=== PATIENT | male | born 1940 | race Caucasian/White ===

== ENCOUNTER 2017-07-04 09:58 | Day surgery (SDC) | payer MEDICARE, OTHER ==
[2017-07-03 14:11] VITALS: BMI 29.1
--- NOTE | 2017-07-04 15:30 | OP ---
DATE OF PROCEDURE: 07/04/2017 PROCEDURE: Esophagogastroduodenoscopy with biopsy. SURGEON: Markel Moon M.D. ANESTHESIA: Medication given per Anesthesiology Department. PREOPERATIVE DIAGNOSES: 1. Chronic gastroesophageal reflux. 2. History of Benites's esophagus. POSTOPERATIVE DIAGNOSES: 1. [place] colored epithelium consistent with Benites's from 39-41 cm from the incisors. 2. A 3 centimeter waist hiatal hernia. 3. Otherwise normal upper endoscopy. PROCEDURE IN DETAIL: Written consent was obtained prior to procedure. After adequate sedation, the forward-viewing endoscope was advanced down the stomach under direct vision to the second portion of duodenum. Both the second portion and the bulb appeared normal. The pylorus was patent. The gastri c antrum, body, fundus, and cardia all appeared normal. Retroflexion showed a 3 cm waist hiatal reza ia. Benites's lining was noted with 2 tongue protruding between 39-41 cm from the incisors. Multipl e biopsies were obtained in 2 separate containers. The mid and upper esophagus appeared normal. The patient tolerated the procedure well. ASSESSMENT: 1. Stable Benites's esophagus. 2. Hiatal hernia. 3. Otherwise normal upper endoscopy. RECOMMENDATIONS: 1. Continue with omeprazole. 2. Await biopsy report.
[2017-07-04] MEDS ORDERED: Propofol 200 MG/20 ML VIAL ONE (17:37)
== END 2017-07-04 13:20 | disposition home or self-care (01) ==
LOC: SDC 09:58
PROVIDERS: ATTEND Internal Medicine Gastroenterology
PROC: 0DB58ZX Excision of Esophagus, Via Natural or Artificial Opening Endoscopic, Diagnostic (ICD-10-PCS; principal; 2017-07-04)
DX: K22.70 Barrett's esophagus without dysplasia (principal); K21.9 Gastro-esophageal reflux disease without esophagitis; K44.9 Diaphragmatic hernia without obstruction or gangrene; I25.10 Atherosclerotic heart disease of native coronary artery without angina pectoris; M19.90 Unspecified osteoarthritis, unspecified site; I10 Essential (primary) hypertension; Z90.49 Acquired absence of other specified parts of digestive tract; Z95.0 Presence of cardiac pacemaker; Z96.652 Presence of left artificial knee joint; Z98.890 Other specified postprocedural states; Z87.891 Personal history of nicotine dependence
CPT/HCPCS: 88305; 88312; 88313; J2704

== ENCOUNTER 2018-02-17 08:57 | Outpatient (CLI) | payer MEDICARE, OTHER | END 2018-02-17 08:58 | disposition home or self-care (01) | LOC: BICULT 08:57 | PROVIDERS: ATTEND Internal Medicine Gastroenterology | DX: Z12.11 Encounter for screening for malignant neoplasm of colon (principal); K21.9 Gastro-esophageal reflux disease without esophagitis; K22.70 Barrett's esophagus without dysplasia; K44.9 Diaphragmatic hernia without obstruction or gangrene; R19.8 Other specified symptoms and signs involving the digestive system and abdomen; K76.0 Fatty (change of) liver, not elsewhere classified | CPT/HCPCS: 76700 ==

== ENCOUNTER 2018-02-19 08:18 | Day surgery (SDC) | payer MEDICARE, OTHER ==
[2018-02-18 13:28] VITALS: BMI 28.5
--- NOTE | 2018-02-19 12:36 | OP ---
DATE OF SERVICE: 02/19/2018 SURGEON: Markel Moon M.D. PROCEDURE: Colonoscopy. PREOPERATIVE DIAGNOSIS: Premedication given per Anesthesiology Department. PREPROCEDURE DIAGNOSIS: Colon screening. POSTOPERATIVE DIAGNOSES: 1. Sigmoid diverticulosis. 2. Otherwise normal colon exam. PROCEDURE IN DETAIL: A written consent was obtained prior to procedure. After adequate sedation, a rectal exam performed was normal. Endoscope was advanced to the cecum. The quality of the bowel pre p was good. The cecum, ascending colon, hepatic flexure, transverse colon, splenic flexure, descendi ng colon appeared normal. Few scattered diverticula were noted in the sigmoid colon. Rectosigmoid c olon all appeared normal. Retroflexion was normal. The patient tolerated the procedure well. ASSESSMENT: 1. Sigmoid diverticulosis coli. 2. Otherwise normal colon exam. RECOMMENDATIONS: 1. Fiber-rich diet. 2. No need for future screening exam at his age.
--- NOTE | 2018-02-19 12:44 | OP ---
DATE OF SERVICE: 02/19/2018 PROCEDURE PERFORMED: Esophagogastroduodenoscopy. SURGEON: Markel Moon M.D. ANESTHESIA: Pain medications given by Anesthesiology Department PREOPERATIVE DIAGNOSES: 1. Chronic gastroesophageal reflux. 2. Recurrent pneumonitis, presumably reflux related. 3. Very short segment Benites's esophagus. POSTOPERATIVE DIAGNOSES: 1. Medium size hiatal hernia with a gastric fold starting at 45 cm with a Z-line with squamocolumnar junction noted at approximately 40 cm with hiatal hernia waist measuring 4 cm. 2. Short segment salmon-colored lining that measured approximately 2 cm from 39 cm from the incisors . 3. Normal stomach and duodenum. PROCEDURE IN DETAIL: A written consent was obtained prior to procedure. After adequate sedation, th e forward-viewing endoscope was advanced down the stomach under direct vision. The duodenum appeared normal. The pylorus was patent. The gastric lumen appeared normal. Retroflexion showed a hiatal h ernia with the waist measuring approximately 4 cm with full insufflation. Gastric narrowing of the g astric fold narrowing of the hernia was noted at approximately 45 cm. The squamocolumnar junction wa s noted approximately 40 cm. Two tongues of salmon-colored lining from previous biopsy document Garcia ett's was noted at approximately 39 cm and appeared normal otherwise. There was no abnormality of th e esophageal mucosa. There were no erosions or esophagitis noted. The mid and upper esophagus appea red normal. The patient tolerated the procedure well. ASSESSMENT: 1. Medium size hiatal hernia, measurement as noted above. 2. Stable short segment Benites's. 3. Otherwise normal upper endoscopy. RECOMMENDATIONS: We will proceed with an esophageal manometry and pH in anticipation of antireflux s urgery for his history of recurrent reflux pneumonitis.
[2018-02-19] MEDS ORDERED: Metoprolol Tartrate 5 MG/5 ML VIAL ONE (14:23)
[2018-02-19] MEDS ORDERED: PROPOFOL 200 MG/20 ML VIAL ONE (14:23)
== END 2018-02-19 11:10 | disposition home or self-care (01) ==
LOC: SDC 08:18
PROVIDERS: ATTEND Internal Medicine Gastroenterology
PROC: 0DJD8ZZ Inspection of Lower Intestinal Tract, Via Natural or Artificial Opening Endoscopic (ICD-10-PCS; principal; 2018-02-19)
PROC: 0DJ08ZZ Inspection of Upper Intestinal Tract, Via Natural or Artificial Opening Endoscopic (ICD-10-PCS; 2018-02-19)
DX: Z12.11 Encounter for screening for malignant neoplasm of colon (principal); K57.30 Diverticulosis of large intestine without perforation or abscess without bleeding; K44.9 Diaphragmatic hernia without obstruction or gangrene; K22.70 Barrett's esophagus without dysplasia; K21.9 Gastro-esophageal reflux disease without esophagitis; Z79.01 Long term (current) use of anticoagulants; Z79.899 Other long term (current) drug therapy; Z87.891 Personal history of nicotine dependence; Z98.890 Other specified postprocedural states; Z79.82 Long term (current) use of aspirin
CPT/HCPCS: 43235; G0121; J2704

== ENCOUNTER → 2018-03-13 | Day surgery (SDC) | payer MEDICARE, OTHER ==
[~2018-03-13] MED LIST: Oxymetazoline HCl 0.05% ( 15 ML ) ONE
== END ==
LOC: ENDO/OP 07:27
PROVIDERS: ATTEND Internal Medicine Gastroenterology
DX: K21.9 Gastro-esophageal reflux disease without esophagitis (principal); K44.9 Diaphragmatic hernia without obstruction or gangrene; K22.70 Barrett's esophagus without dysplasia; Z87.891 Personal history of nicotine dependence; Z79.899 Other long term (current) drug therapy; Z79.01 Long term (current) use of anticoagulants
CPT/HCPCS: 91010

== ENCOUNTER 2018-03-20 16:52 | Outpatient (CLI) | payer MEDICARE, OTHER ==
[2018-03-20 17:29] LABS: #Eosinphils 0.1 thou/uL (0.0-0.7); #Lymphocytes 1.4 thou/uL (1.20-3.40); #Monocytes 0.4 thou/uL (0.11-0.59); #Neutrophils 3.5 thou/uL (1.40-6.50); %Basophils 0.7 % (0.0-1.0); %Eosinophils 1.8 % (0.0-10.0); %Monocytes 6.6 % (0.0-10.0); Hemoglobin 13.9 g/dL (14.0-18.0); Mean Corpuscular HGB CONC 35.4 g/dL (32.0-36.0); Mean Corpuscular Hemoglobin 34.8 pg (27.0-31.0); Mean Corpuscular Volume 98.2 fL (78.0-98.0); Mean Platelet Volume 7.2 fL (7.4-10.4); Platelet Count 142 thou/uL (130-400); RBC Distribution Width 11.6 % (11.5-14.5); White Blood Cell (WBC) Count 5.4 thou/uL (4.8-10.8)
[2018-03-20 17:49] LABS: Albumin 4.4 g/dL (3.4-4.8)
[2018-03-20 17:50] LABS: Calcium 9.4 mg/dL (7.8-10.44); Chloride 107 mmol/L (98-107); Potassium 5.2 mmol/L (3.5-5.1); Sodium 138 mmol/L (136-145)
[2018-03-20 17:51] LABS: Glucose 141 mg/dL (83-110)
[2018-03-20 17:52] LABS: Globulin 2.7 g/dL (2.4-3.5); Protein, Total 7.1 g/dL (5.8-8.1)
[2018-03-20 17:53] LABS: Bilirubin, Total 0.9 mg/dL (0.2-1.2); Carbon Dioxide 24 mmol/L (23-31)
[2018-03-20 17:54] LABS: Alkaline Phosphatase 72 U/L (40-150)
[2018-03-20 17:55] LABS: BUN (Urea Nitrogen) 25 mg/dL (8.4-25.7); Calc. Creatinine Clearance 0 mL/min (70-130); Estimated GFR-MDRD 44
[2018-03-20 17:56] LABS: AST (SGOT) 24 U/L (5-34)
[2018-03-20 17:57] LABS: ALT (SGPT) 25 U/L (8-55)
[2018-03-20 18:38] LABS: Anion Gap 12 mmol/L (10-20)
--- NOTE | 2018-03-21 15:16 | EKG ---
Test Reason : Blood Pressure : / mmHG Vent. Rate : 070 BPM Atrial Rate : 535 BPM P-R Int : 000 ms QRS Dur : 156 ms QT Int : 428 ms P-R-T Axes : 000 -68 088 degrees QTc Int : 462 ms Poor data quality, interpretation may be adversely affected Atrial fibrillation Left axis deviation Non-specific intra-ventricular conduction block Possible Lateral infarct , age undetermined Abnormal ECG No previous ECGs available Confirmed by SESAR OTOOLE, LYNSEY ([id number]) on 03/21/2018 3:16:35 PM Referred By: JERRY Confirmed By:LYNSEY KABA MD
== END 2018-03-20 16:53 | disposition home or self-care (01) ==
LOC: LABBT 16:52
PROVIDERS: ATTEND Surgery
DX: Z01.818 Encounter for other preprocedural examination (principal); K22.70 Barrett's esophagus without dysplasia; K44.9 Diaphragmatic hernia without obstruction or gangrene
CPT/HCPCS: 80053; 85025; 93005; 93010

== ENCOUNTER 2018-03-26 07:48 | Inpatient (IN) | payer MEDICARE, OTHER ==
[2018-03-20 17:20] VITALS: BMI 27.5
[2018-03-26] MEDS ORDERED: CEFAZOLIN/Water 2 GM/20 ML SYRINGE ONE (08:04)
[2018-03-26] MEDS ORDERED: Bupivacaine/Epinephrine 0.25% 30 ML VIAL ONE (08:16)
[2018-03-26] MEDS ORDERED: Fentanyl 100 MCG/2 ML VIAL ONE ×3 (08:53→11:20)
[2018-03-26] MEDS ORDERED: Dextrose 5% in Water 1,000 ML IV PRN (10:45)
[2018-03-26] MEDS ORDERED: Hydrocodone-Acetamin 15 ML UDCUP PO PRN (10:45)
[2018-03-26] MEDS ORDERED: diphenhydrAMINE 50 MG/ML VIAL IVP PRN ×2 (10:45→11:44)
[2018-03-26] MEDS ORDERED: hydrALAZINE 20 MG/ML VIAL SLOW IVP PRN (10:45)
[2018-03-26] MEDS ORDERED: Dextrose 50% Abboject 50 ML SYRINGE SLOW IVP PRN (10:45)
[2018-03-26] MEDS ORDERED: Ondansetron HCl/PF 4 MG/2 ML Vial IVP PRN ×3 (10:45→11:44)
[2018-03-26] MEDS ORDERED: Promethazine HCl 25 MG/ML VIAL IM PRN ×3 (10:45→11:44)
[2018-03-26] MEDS ORDERED: Promethazine HCl 25 MG/ML VIAL SLOW IVP PRN (10:56)
[2018-03-26] MEDS ORDERED: Zolpidem Tartrate 5 MG TAB PO PRN (11:44)
[2018-03-26] MEDS ORDERED: diphenhydrAMINE 50 MG/ML VIAL IM PRN (11:44)
[2018-03-26] MEDS ORDERED: diphenhydrAMINE 25 MG CAP PO PRN (11:44)
[2018-03-26] MEDS ORDERED: fentaNYL Citrate/PF 2,000 MCG in Sodium Chloride 0.9% 60 ML IV PRN (11:44)
[2018-03-26] MEDS ORDERED: Naloxone HCl 0.4 mg/ml Vial IV PRN (11:44)
[2018-03-26] MEDS ORDERED: Communication Order-Pharmacy FS SCH (11:45)
[2018-03-26] MEDS ORDERED: hydrALAZINE 20 MG/ML VIAL ONE (12:05)
--- NOTE | 2018-03-26 12:27 | OP ---
DATE OF PROCEDURE: 03/26/2018 PREOPERATIVE DIAGNOSES: Benites's esophagus, hiatal hernia, severe reflux. SURGEON: Daren Fleming M.D. PROCEDURE PERFORMED: Laparoscopic Michael fundoplication with esophagogastroduodenoscopy. INDICATIONS: This is an 78-year-old male who has been dealing with reflux for many years. He has de veloped Benites's esophagus without dysplasia. His reflux is not controlled by medication. He was f ound to have a hiatal hernia as well. FINDINGS: Moderate sized hiatal hernia quite a bit inflammation around the distal esophagus. PROCEDURE IN DETAIL: After informed consent was obtained, the patient was taken to the operating dennis m and given general endotracheal anesthesia. He was placed in the supine position. The abdomen was prepped and draped in usual fashion. Local anesthesia infiltrated subcutaneously and deep. A 5 mm i ncision was performed about 8 inches below the xiphoid slightly to the left. Veress needle inserted. Drop test performed. Pneumoperitoneum was created to a volume of 2 liters of carbon dioxide. Util izing a bladeless 5 mm trocar and 0 degree laparoscope, direct visual into the abdominal cavity was p erformed. Pneumoperitoneum was then created to a pressure of 15 mmHg. The patient placed in steep r everse Trendelenburg position. Nathansen liver retractor inserted. Left lobe of liver retracted sup eriorly. A 5 mm port was placed just to the left of the falciform, an 8 mm port placed left subcosta l and another 5 mm port placed further lateral left side. The stomach/hiatal hernia was retracted in feriorly and the gastrophrenic ligament was divided utilizing the LigaSure. The peritoneum was then opened along the anterior surface of the hiatus and down on the left crura. Then the right crura was also defined. A posterior esophageal window was created just between the posterior vagus nerve and the esophagus. This was done using blunt dissection. A Yanelis drain was then inserted through this space which aided with retraction. The short gastrics were taken down utilizing the LigaSure, hiata l hernia was completely reduced. A 40 Urdu bougie inserted under direct vision into the stomach. The posterior crural plication was performed utilizing 0 Ethibond with the Sew-Right and tie knot dev ice. Then the fundus was grasped and brought to the right side of the esophagus through that window between posterior vagal nerve and the esophagus. A Michael fundoplication was then performed utilizin g 2-0 silk sutures tied intracorporeally between fundus esophagus and the right side fundus. Intraop erative endoscopy was then performed. The video endoscope inserted under direct vision and advanced into the stomach. There was no air leak. The scope was retroflexed. The wrap looked good. There w as no paraesophageal component. The stomach decompressed. Scope removed. The stomach was further p exy'd to the lateral left-sided abdominal wall with 2-0 silk sutures to attempt to maintain and prev ent recurrence. Then the wrap was further secured to the crura and hiatus circumferentially utilizin g the Tisseel sealant. Hemostasis was assured. Trocars and retractors removed. Skin closed with in terrupted 4-0 Rapide. Steri-Strips applied. Sterile bandage applied. The patient tolerated the pro cedure well and was transferred to recovery in good condition. Sponge and needle count verified lucian ect x2.
[2018-03-26] MEDS: D5 1/2 NS w/20 mEq KCL 1,000 ML IV SCH (16:56)
[2018-03-26] MEDS: CEFAZOLIN/Water 2 GM/20 ML SYRINGE SLOW IVP SCH (17:23)
[2018-03-27] MEDS: D5 1/2 NS w/20 mEq KCL 1,000 ML IV SCH ×3 (00:36→08:11)
[2018-03-27] MEDS: CEFAZOLIN/Water 2 GM/20 ML SYRINGE SLOW IVP SCH (00:38)
[2018-03-27 06:25] LABS: Anion Gap 12 mmol/L (10-20); BUN (Urea Nitrogen) 16 mg/dL (8.4-25.7); Calc. Creatinine Clearance 73 mL/min (70-130); Calcium 8.5 mg/dL (7.8-10.44); Carbon Dioxide 23 mmol/L (23-31); Chloride 105 mmol/L (98-107); Estimated GFR-MDRD 68; Glucose 203 mg/dL (83-110); Potassium 4.2 mmol/L (3.5-5.1); Sodium 136 mmol/L (136-145)
[2018-03-27 07:15] LABS: #Lymphocytes 1.1 thou/uL (1.20-3.40); #Monocytes 0.5 thou/uL (0.11-0.59); %Basophils 0.1 % (0.0-1.0); %Eosinophils 0.4 % (0.0-10.0); %Lymphocytes 11.6 % (21.0-51.0); %Monocytes 4.9 % (0.0-10.0); %Neutrophils 83.1 % (42.0-75.0); Hemoglobin 13.3 g/dL (14.0-18.0); Mean Corpuscular HGB CONC 36.5 g/dL (32.0-36.0); Mean Corpuscular Hemoglobin 35.2 pg (27.0-31.0); Mean Corpuscular Volume 96.3 fL (78.0-98.0); Mean Platelet Volume 7.4 fL (7.4-10.4); Platelet Count 133 thou/uL (130-400); RBC Distribution Width 11.6 % (11.5-14.5); Red Blood Cell (RBC) Count 3.78 mill/uL (4.70-6.10); White Blood Cell (WBC) Count 9.6 thou/uL (4.8-10.8)
[2018-03-27] MEDS ORDERED: Pantoprazole 40 MG VIAL IVP SCH (09:00)
[2018-03-27] MEDS ORDERED: Enoxaparin Sodium 40 MG/0.4 ML SYRINGE SC SCH (09:00)
--- NOTE | 2018-03-27 09:35 | RAD ---
UPPER GI SERIES SINGLE COLUMN: DATE: 03/27/18. HISTORY: An 78-year-old male status post hiatal hernia repair. TECHNIQUE: The patient swallowed 15 mL of Gastrografin while upright. Brief, intermittent fluoroscopy performed . FINDINGS: The contrast material traverses the narrowed proximal gastric channel. The narrowing is presumably d ue to fundoplication, postoperative edema, or a combination of both. Contrast enters the body of the stomach and distal stomach. There is decreased peristalsis. No extravasation is identified. There is some holdup of contrast in the distal esophagus proximal to the narrowed gastric channel. No res idual hiatal hernia. IMPRESSION: 1. Postoperative edema and presumed fundoplication. 2. No evidence of leakage or any other major complication. POS: [facility]
[2018-03-27] MEDS ORDERED: DC PCA Order Set 1 EACH FS ONE (09:45)
--- NOTE | 2018-03-27 10:30 | PRG ---
DATE OF SERVICE: 03/27/2018 SUBJECTIVE: Patient is doing well. Pain is controlled. He did have some hematemesis that has resol jude. No nausea. PHYSICAL EXAMINATION: VITAL SIGNS: His temperature is 98.9, pulse 70, blood pressure 172/77. GENERAL: He looks fine. Incisions look good. LABORATORY DATA: White count 9.6, H and H 13 and 36, platelet count 133. Electrolytes just show an elevated glucose at 203. X-ray looked fine. PLAN: Start liquid diet and discontinue BRIDGE OPERATOR SLIP and discharge when tolerate and when meets criteria.
[2018-03-27] MEDS ORDERED: Hydrocodone-Acetamin 15 ML UDCUP PO PRN (10:40)
[2018-03-27 11:22] VITALS: BP 154/72; TEMP 98.5
--- NOTE | 2018-03-27 22:50 | DIS ---
DISCHARGE DIAGNOSES: Benites's esophagus, severe gastroesophageal reflux, hiatal hernia. PROCEDURES DURING ADMISSION: Laparoscopic Michael fundoplication with intraoperative esophagogastrosc opy, postoperative Gastrografin swallow. HOSPITAL COURSE: Patient was admitted, taken to the operating room where he underwent a Michael fundo plication. Postoperatively, he has done well. He is tolerating liquids well. Pain controlled on p. o. meds. He is discharged home in good condition on his usual medications with the addition of hydro codone, elixir, and Zofran oral disintegrating tablet. He will follow up with me in 2 weeks.
== END 2018-03-27 14:47 | disposition home or self-care (01) | DRG 327 ==
LOC: SDC 07:48 → SURG B 10:45 → OBSVTOIN 10:45
PROVIDERS: ADMIT Surgery; ATTEND Surgery
PROC: 0DV48ZZ Restriction of Esophagogastric Junction, Via Natural or Artificial Opening Endoscopic (ICD-10-PCS; principal; 2018-03-26)
DX: K21.9 Gastro-esophageal reflux disease without esophagitis (principal); K92.0 Hematemesis; K22.70 Barrett's esophagus without dysplasia; K44.9 Diaphragmatic hernia without obstruction or gangrene
CPT/HCPCS: 36415; 74241; 80048; 85025; 94760; C9113; J0360; J1650; J3010; J7050

== ENCOUNTER 2018-05-15 10:08 | Day surgery (SDC) | payer MEDICARE, OTHER ==
[2018-05-14 17:09] VITALS: BMI 25.6
[2018-05-15] MEDS ORDERED: PROPOFOL 200 MG/20 ML VIAL ONE (11:59)
--- NOTE | 2018-05-15 14:14 | OP ---
DATE OF CONSULTATION: 05/15/2018. PROCEDURE: Esophagogastroduodenoscopy with biopsy. SURGEON: Markel Moon M.D. MEDICATION: Given per Anesthesiology Department. PREOPERATIVE DIAGNOSES: 1. Epigastric pain. 2. Status post recent fundoplication with negative postop CT and ultrasound. POSTOPERATIVE DIAGNOSES: 1. A 1 cm duodenal bulb ulcer. 2. Erosive gastritis. 3. Intact fundoplication. 4. Lower esophageal mucosal change consistent with short segment Benites's esophagus. PROCEDURE IN DETAIL: A written consent was obtained prior to procedure. After adequate sedation, th e forward-viewing endoscope was advanced down the stomach under direct vision to second portion of du odenum. The second and first portion appeared normal. In the bulb, a 1 cm ulcer was noted with blas n crater. There was no stigmata of bleeding. Pylorus was patent. The gastric antrum appeared keyanna l. In the body, fundus, and proximal and distal cardia, scattered erosions along with mucosal erythe ma was noted. Biopsies obtained for H. pylori. Retroflexion showed an intact fundoplication. There is columnar changes in the lower esophagus consistent with his previous history of short segment Bar rett's. The lower, mid, and upper esophagus appeared normal otherwise. ASSESSMENT: 1. Duodenal ulcer. 2. Erosive gastritis. 3. Status post fundoplication with wrap intact. 4. Short segment Benites's esophagus. PLAN: 1. Await biopsy results for H. pylori. 2. Pantoprazole 40 mg p.o. b.i.d. 3. Follow up in the office in 3-4 weeks.
== END 2018-05-15 13:26 | disposition home or self-care (01) ==
LOC: SDC 10:08
PROVIDERS: ATTEND Internal Medicine Gastroenterology
PROC: 0DB68ZX Excision of Stomach, Via Natural or Artificial Opening Endoscopic, Diagnostic (ICD-10-PCS; principal; 2018-05-15)
DX: K26.9 Duodenal ulcer, unspecified as acute or chronic, without hemorrhage or perforation (principal); K29.70 Gastritis, unspecified, without bleeding; K22.70 Barrett's esophagus without dysplasia; K21.9 Gastro-esophageal reflux disease without esophagitis; Z87.891 Personal history of nicotine dependence; Z79.82 Long term (current) use of aspirin; Z79.01 Long term (current) use of anticoagulants; Z79.899 Other long term (current) drug therapy; Z98.890 Other specified postprocedural states
CPT/HCPCS: 88305; 88312; J2704

== ENCOUNTER 2018-07-06 15:35 | Inpatient (IN) | payer MEDICARE, OTHER ==
[~2018-07-06 15:35] MED LIST changes: +Iopamidol 370 76% 100 ML VIAL ONE; -Oxymetazoline HCl 0.05% ( 15 ML ) ONE
[2018-07-06] MEDS ORDERED: Ondansetron PF 4 MG/2 ML Vial ONE (16:18)
[2018-07-06] MEDS ORDERED: Morphine 4 MG/ML VIAL ONE (16:20)
[2018-07-06 16:30] LABS: #Eosinphils 0.1 thou/uL (0.0-0.7); #Lymphocytes 0.7 thou/uL (1.20-3.40); #Monocytes 0.3 thou/uL (0.11-0.59); #Neutrophils 5.3 thou/uL (1.40-6.50); %Basophils 0.7 % (0.0-1.0); %Eosinophils 1.6 % (0.0-10.0); %Lymphocytes 11.1 % (21.0-51.0); %Monocytes 5.2 % (0.0-10.0); %Neutrophils 81.4 % (42.0-75.0); Hemoglobin 13.7 g/dL (14.0-18.0); Mean Corpuscular HGB CONC 35.2 g/dL (32.0-36.0); Mean Corpuscular Hemoglobin 33.4 pg (27.0-31.0); Mean Corpuscular Volume 94.8 fL (78.0-98.0); Mean Platelet Volume 7.1 fL (7.4-10.4); Platelet Count 167 thou/uL (130-400); RBC Distribution Width 12.2 % (11.5-14.5); White Blood Cell (WBC) Count 6.5 thou/uL (4.8-10.8)
[2018-07-06 16:52] LABS: ALT (SGPT) 12 U/L (8-55); AST (SGOT) 13 U/L (5-34); Albumin 3.4 g/dL (3.4-4.8); Alkaline Phosphatase 91 U/L (40-150); Anion Gap 16 mmol/L (10-20); BUN (Urea Nitrogen) 29 mg/dL (8.4-25.7); Bilirubin, Total 1.5 mg/dL (0.2-1.2); Calc. Creatinine Clearance 0 mL/min (70-130); Calcium 9.2 mg/dL (7.8-10.44); Carbon Dioxide 20 mmol/L (23-31); Chloride 95 mmol/L (98-107); Estimated GFR-MDRD 46; Globulin 3.5 g/dL (2.4-3.5); Glucose 459 mg/dL (83-110); Lipase 41 U/L (8-78); Potassium 4.9 mmol/L (3.5-5.1); Protein, Total 6.9 g/dL (5.8-8.1); Sodium 126 mmol/L (136-145)
--- NOTE | 2018-07-06 18:25 | CT ---
CT ANGIOGRAM THORAX WITH IV CONTRAST AND 3D RECONSTRUCTIONS: 07/06/2018 HISTORY: Shortness of breath. Abdominal pain. History of recent surgery. Forty pound weight loss. COMPARISON: None available. FINDINGS: No filling defects are seen in the pulmonary arteries to suggest a pulmonary embolus. Vascular calci fications are seen in the thoracic aorta. The thoracic aorta is otherwise normal in caliber, without evidence of an aortic dissection. A triple lead left subclavian AICD device is noted in place. The heart is borderline enlarged. Nonspecific mildly increased number of lymph nodes are seen within the mediastinum. No enlarged lymp h nodes are seen by CT size criteria. A 1.9 cm left upper lobe pulmonary nodule is present. No additional discrete pulmonary nodule mass i s seen. There are emphysematous changes within the lungs, prominently on the right. There are scatt ered chronic interstitial lung changes also within the lungs bilaterally, greater at each lung base. No pleural effusion is present. Degenerative changes are seen in the spine. IMPRESSION: 1. Left upper lobe pulmonary nodule. Further evaluation with PET CT scan is recommended. 2. Chronic lung changes. 3. No CT evidence of a pulmonary embolus. 4. Borderline cardiomegaly. CODE LN POS: [facility]
--- NOTE | 2018-07-06 18:49 | CT ---
CT ABDOMEN AND PELVIS WITH IV CONTRAST: 07/06/2018 HISTORY: Shortness of breath and abdominal pain. Forty pound weight loss. COMPARISON: None available. FINDINGS: AICD leads are seen in the heart. The heart is borderline enlarged. Vascular calcifications are see n in the ascending thoracic aorta, as well as involving the abdominal aorta and, to a lesser extent, the iliac arteries. Chronic bibasilar lung changes are noted. There is slight heterogeneity of the spleen, which is overall nonspecific. No discrete mass is appre ciated. The spleen is enlarged, measuring 14.6 cm in craniocaudal dimensions. Subcentimeter, vpx-hrshi-mq-characterize, hypodense lesions are seen in each kidney. There are a few approximately 2 mm nonobstructing calculi seen in each kidney. No hydronephrosis is present. The liver, pancreas, bilateral adrenal glands, and urinary bladder demonstrate a normal CT appearance . Colonic diverticulosis is present. The appendix is not visualized, but no secondary signs to suggest appendicitis are noted. Loops of small bowel are normal in caliber. A small fat-containing left inguinal hernia is present. No free fluid, fluid collection, or lymphadenopathy is seen in the abdomen or pelvis. Degenerative changes are seen in the spine. IMPRESSION: 1. Splenomegaly with mild nonspecific heterogeneity of the spleen. 2. Subcentimeter, bgy-qkipn-zd-characterize, hypodense lesions in each kidney with tiny, nonobstruct ing renal calculi seen. 3. Colonic diverticulosis. 4. Chronic bibasilar lung changes. 5. Borderline cardiomegaly. POS: [facility]
[2018-07-06 19:37] LABS: Troponin I 0.015 ng/mL (< 0.028)
[2018-07-06] MEDS ORDERED: Acetaminophen 325 MG TAB PO PRN (20:16)
[2018-07-06] MEDS ORDERED: Ondansetron ODT 4 MG TAB SL PRN (20:16)
[2018-07-06] MEDS ORDERED: HYDROcodone/Acetaminophen 5/325 mg Tablet PO PRN ×2 (20:16)
[2018-07-06] MEDS ORDERED: Ondansetron PF 4 MG/2 ML Vial IVP PRN (20:16)
[2018-07-06] MEDS ORDERED: Dextrose 50% Abboject 50 ML SYRINGE SLOW IVP PRN (21:37)
[2018-07-06] MEDS ORDERED: Dextrose 5% in Water 1,000 ML IV PRN (21:37)
[2018-07-06] MEDS ORDERED: Insulin Regular 300 UNITS/3 ML VIAL SC PRN ×2 (21:37)
[2018-07-06 21:49] LABS: Hemoglobin A1c 10.1 % (4.0-6.0); Lactic Acid 1.9 mmol/L (0.5-2.2)
[2018-07-06] MEDS ORDERED: Carvedilol 6.25 MG TAB PO SCH (22:00)
[2018-07-06 22:21] LABS: Anion Gap 12 mmol/L (10-20); BUN (Urea Nitrogen) 28 mg/dL (8.4-25.7); Calc. Creatinine Clearance 50 mL/min (70-130); Calcium 8.7 mg/dL (7.8-10.44); Carbon Dioxide 23 mmol/L (23-31); Chloride 98 mmol/L (98-107); Estimated GFR-MDRD 49; Glucose 537 mg/dL (83-110); Phosphorus 3.5 mg/dL (2.3-4.7); Potassium 4.5 mmol/L (3.5-5.1); Sodium 128 mmol/L (136-145); Uric Acid 3.7 mg/dL (3.5-7.2)
[2018-07-06 22:27] LABS: Troponin I 0.025 ng/mL (< 0.028)
[2018-07-06] MEDS ORDERED: Insulin Glargine 20 UNITS in Pre-Filled Syringe 1 EACH SC SCH (22:45)
[2018-07-06 23:02] LABS: Folate (Folic Acid) 15.1 ng/mL (7.0-31.4)
[2018-07-06] MEDS: Sodium Chloride 0.9% 1,000 ML IV SCH (23:24)
[2018-07-07] MEDS ORDERED: Zolpidem Tartrate 5 MG TAB PO PRN (01:38)
[2018-07-07] MEDS ORDERED: Nitroglycerin 0.4 MG TAB (25 Tab Bottle) PO PRN (02:32)
[2018-07-07] MEDS ORDERED: Senokot S 8.6-50 MG TAB PO PRN (02:33)
[2018-07-07] MEDS ORDERED: Acetaminophen 325 MG TAB PO PRN (02:33)
[2018-07-07] MEDS ORDERED: Ondansetron ODT 4 MG TAB PO PRN (02:33)
[2018-07-07] MEDS ORDERED: Calcium Carbonate 500 MG ChewTAB PO PRN (02:33)
[2018-07-07] MEDS ORDERED: Ondansetron PF 4 MG/2 ML Vial IVP PRN (02:33)
--- NOTE | 2018-07-07 03:35 | HP ---
The patient was seen and examined on 07/06/2018. PRIMARY CARE PHYSICIAN: Dr. Jhonathan Singh. PRIMARY WHOLESALE MANAGER: Dr. Moon. PRIMARY GENERAL SURGERY: Dr. Fleming. CHIEF COMPLAINT: Shortness of breath as well as abdominal discomfort. HISTORY OF PRESENT ILLNESS: The patient is an 78-year-old male with laparoscopic Michael fundoplication in February of this year, presented to the emergency room with above symptoms. The patient has intermittent epigastric pain that has become more or less constant recently. He has been short of breath on minimal exertion. He does have a history of COPD as well. He also noticed 40-pound weight loss over the past 4 to 6 months. He has been feeling generally weak and fatigued. No cough, wheezing, or leg swelling reported. He denies any recent travel. He underwent EGD in April that showed duodenal ulcer with erosive gastritis with a short- segment Benites's esophagus. Biopsy was negative for H. pylori. He is currently on Protonix 40 mg twice a day. He also noticed increased polyuria, polydipsia, and polyphagia. In the emergency room, his initial vital signs showed temperature of 98.6, respirations of 28, pulse rate of 74 with a blood pressure of 138/71 with O2 saturation 100% on room air. He underwent a CT angiogram of the chest that was negative for pulmonary embolism. It showed left upper lobe pulmonary nodule approximately 1.[address] also showed emphysematous changes within the lungs , more prominent on the right. CT of the abdomen and pelvis showed colonic diverticulosis with splenomegaly. PAST MEDICAL HISTORY: 1. Congestive heart failure. He follows with a oxygen equipment preparer in [place]. He currently has a defibrillator. 2. Hypertension. 3. COPD. 4. Benign prostatic hypertrophy. 5. Hyperlipidemia. 6. Atrial tachycardia, status post ablation earlier this year. 7. Anxiety and depression. PAST SURGICAL HISTORY: 1. AICD placement. 2. Bilateral rotator cuff surgery. 3. Appendectomy. 4. Left knee replacement. 5. AICD placement. 6. Cardiac catheterization. ALLERGIES: NO KNOWN DRUG ALLERGIES. CURRENT HOME MEDICATIONS: 1. Aspirin 81 mg daily. 2. Carvedilol 6.25 mg b.i.d. 3. Digoxin 125 mcg daily. 4. Finasteride 2.5 mg daily. 5. Gemfibrozil 600 mg daily. 6. Claritin 10 mg daily. 7. Slow-Mag 64 mg daily. 8. Multivitamin one tablet daily. 9. Protonix 40 mg b.i.d. 10. Aldactone 12.5 mg on Saturday, Saturday, and Saturday. 11. Trintellix 10 mg b.i.d. 12. Ambien 5 mg at bedtime. SOCIAL HISTORY: The patient currently lives at home with his family. He denies current use of tobacco, alcohol, or drug use. He is a former smoker. He makes his own decision with help of his . FAMILY HISTORY: Negative for premature coronary artery disease. REVIEW OF SYSTEMS: All other review of systems was reviewed and were found negative. PHYSICAL EXAMINATION: VITAL SIGNS: As discussed above. GENERAL: An 78-year-old male, in no apparent distress while resting. He is saturating 92% on room air while resting. HEENT: Head, atraumatic and normocephalic. Sclerae anicteric. Moist mucous membranes. No oral lesions. NECK: Supple. No JVD. No carotid bruit. LUNGS: Showed scattered rales at bases. HEART: S1, S2 present. Regular rate and rhythm, 2/6 systolic murmur over the mitral area. ABDOMEN: Soft, mild epigastric tenderness. No rebound or guarding. No costovertebral angle tenderness. EXTREMITIES: No edema or calf tenderness. NEUROLOGIC: Grossly nonfocal. Moves all 4 extremities. PSYCHIATRIC: Alert, awake, and oriented x3. SKIN: Warm and dry. LYMPH NODES: No palpable lymph nodes in the neck. PERIPHERAL VASCULAR: Radial pulses palpable bilaterally. MUSCULOSKELETAL: No joint swelling or tenderness. LABORATORY FINDINGS: CBC showed WBC 6.5 with hemoglobin 13.7, hematocrit 38.8, and platelet of 167. Chemistry showed sodium 126, potassium 4.9, chloride 95, bicarb 20, BUN 29, creatinine 1.47, and blood glucose of 459. A1c 10.1. Serum osmolarity 287. Lactic acid 1.9. Ketones 0.2. CT angiogram of the chest by my review as discussed above. CT scan of the abdomen and pelvis with IV contrast as discussed above. EKG by my review showed paced rhythm. IMPRESSION: 1. Shortness of breath in an 78-year-old male with history of chronic obstructive pulmonary disease and congestive heart failure. He is saturating 92% on room air while resting. His symptoms are probably c/w COPD exacerbation. He will probably need home oxygen. 2. Acute on chronic epigastric discomfort with recent Michael fundoplication. He also had esophagogastroduodenoscopy in April as discussed above. 3. New diagnosis of diabetes mellitus type 2. 4. Chronic obstructive pulmonary disease. 5. Congestive heart failure, ejection fraction unknown. He denies recent echocardiogram. He follows with a oxygen equipment preparer in [place]. 6. Left upper pulmonary nodule measuring 1.9 cm. Primary care physician advised to follow. 7. Diverticulosis. 8. Peptic ulcer disease. 9. Recent Michael fundoplication. 10. Hypertension. 11. Hyperlipidemia. 12. Chronic insomnia. 13. Benign prostatic hypertrophy. 14. Anxiety and depression. 15. Coronary artery disease without any stent placement per patient report. 16. History of atrial arrhythmia, requiring ablation earlier this year. PLAN: The patient will be monitored on the telemetry unit. Echocardiogram will be obtained. We will consult dietitian for new-onset diabetes. We will start him on low-dose glipizide along with sliding scale. He will also probably require low- dose Lantus on a daily basis. We will resume all other home medications. We will recheck labs on a daily basis, consult dietitian. We will keep him on clear- liquid diet and consult General Surgery due to persistent abdominal discomfort. We will assess for home O2 in the a.m. The patient was extensively counseled on diabetes and its long-term side effects. Will avoid steroids due to hyperglycemia. Plan of care was discussed with the patient in detail. He stated understanding. Job ID: [id number] MTDD
[2018-07-07] MEDS: Sodium Chloride 0.9% 1,000 ML IV SCH (07:00)
[2018-07-07] MEDS: glipiZIDE 5 MG TAB PO SCH (07:26)
[2018-07-07] MEDS: Insulin Regular 300 UNITS/3 ML VIAL SC PRN ×3 (07:29→15:09)
[2018-07-07] MEDS ORDERED: Spironolactone 25 MG TAB PO SCH (07:30)
[2018-07-07] MEDS ORDERED: Gemfibrozil 600 MG TAB PO SCH (07:30)
[2018-07-07 07:42] LABS: Anion Gap 10 mmol/L (10-20); BUN (Urea Nitrogen) 21 mg/dL (8.4-25.7); Calc. Creatinine Clearance 69 mL/min (70-130); Calcium 8.4 mg/dL (7.8-10.44); Carbon Dioxide 23 mmol/L (23-31); Chloride 103 mmol/L (98-107); Estimated GFR-MDRD 72; Glucose 281 mg/dL (83-110); Potassium 4.2 mmol/L (3.5-5.1); Sodium 132 mmol/L (136-145)
[2018-07-07] MEDS ORDERED: Ascorbic Acid 500 mg Chewable Tablet PO SCH (09:00)
[2018-07-07] MEDS ORDERED: Multivit, Therapeutic 1 TAB PO SCH (09:00)
[2018-07-07] MEDS ORDERED: Aspirin 81 mg Enteric Coated Tablet PO SCH (09:00)
[2018-07-07] MEDS ORDERED: Loratadine 10 MG TAB PO SCH (09:00)
[2018-07-07] MEDS ORDERED: Magnesium Chloride 64 MG TAB PO SCH (09:00)
[2018-07-07] MEDS ORDERED: Finasteride 5 MG TAB PO SCH (09:00)
[2018-07-07] MEDS: Carvedilol 6.25 MG TAB PO SCH ×2 (09:30→16:24)
[2018-07-07] MEDS: cycloSPORINE 0.05% Ophthalmic Droperette EA EYE SCH ×2 (11:52→23:47)
--- NOTE | 2018-07-07 11:52 | PDOC.PN ---
- Subjective Encounter Start Date: 07/07/18 Encounter Start Time: 11:49 Mr. Corey was seen today in follow-up of progressive shortness of breath, and abdominal pain. He says he continues to have both symptoms. In discusing with him, these are both chronic conditions, in which his [facility] physician, , and Full Stack Php Developer, Surgeon and Chef'S Assistant and Teaching Dietitian are all aware. - Objective Resuscitation Status - Order Detail: 07/07/18 02:33 Resuscitation Status Routine Resuscitation Status: FULL: Full Resuscitation MAR Reviewed: Yes Vital Signs & Weight: Vital Signs (12 hours) Temp Pulse Resp BP BP Pulse Ox 07/07/18 09:30 161/72 H 07/07/18 07:34 97.9 F 71 18 135/65 94 L Weight Weight 182 lb 11.2 oz Result Diagrams: 07/06/18 16:07 07/07/18 07:10 Additional Labs: Accuchecks 07/07/18 07/07/18 07/07/18 10:09 06:19 01:33 POC Glucose 209 H 293 H 355 H 07/06/18 22:39 POC Glucose 451 H Phys Exam - Physical Examination HEENT: PERRLA Respiratory: no wheezing, no rales, no rhonchi, clear to auscultation bilateral Cardiovascular: RRR, no significant murmur, no rub Gastrointestinal: soft, non-tender, no distention, positive bowel sounds Musculoskeletal: no edema, pulses present Dx/Plan (1) COPD exacerbation Code(s): J44.1 - CHRONIC OBSTRUCTIVE PULMONARY DISEASE W (ACUTE) EXACERBATION Status: Acute (2) Diabetes mellitus type 2 in nonobese Code(s): E11.9 - TYPE 2 DIABETES MELLITUS WITHOUT COMPLICATIONS Status: Acute (3) GERD (gastroesophageal reflux disease) Code(s): K21.9 - GASTRO-ESOPHAGEAL REFLUX DISEASE WITHOUT ESOPHAGITIS Status: Chronic (4) Pulmonary nodule, left Code(s): R91.1 - SOLITARY PULMONARY NODULE Status: Chronic - Plan * Progressive dyspnea- CTA had findings consistent with COPD. He tells me his symptomas have been progressive over the past 5 months. He also tells me his Chef'S Assistant had given him a prescription for Symbicort, which he says at first , he didn't think it was helping much, but in the past few days he tried taking it again, and was able to see some benefit- Will restart Symbicort, and add Spiriva, and Follow-up with his Chef'S Assistant as outpatient * DM- new onset- Steel Erector Apprentice has been consulted- will discharge him on an oral agent- likely nGlucovance * Abdominal discomfort- ? etiology- he tells me he has been to see Dr. Fleming as well as Dr. Moon regarding this Prior to this admission. He says he has had numerous tests, and even an EGD to try to find out what is causing the problem. _ await further recommendations from Dr. Fleming * Pulmonary Nodule- he says he has known about this for several years, and this is stable.
[2018-07-07] MEDS ORDERED: Ipratropium Bromide 2.5 ml Neb ONE (14:38)
[2018-07-07] MEDS ORDERED: Mometasone/Formoterol 120 PUFF INHALER INH SCH ×2 (14:45→18:30)
--- NOTE | 2018-07-07 16:18 | CON ---
DATE OF CONSULTATION: CHIEF COMPLAINT: Epigastric pain. HISTORY: The patient is an 78-year-old male, who had a laparoscopic Michael fundoplication and repair of hiatal hernia in February. Since surgeries, he had persistent epigastric pain. He saw Dr. Moon, who did an EGD in April, saw a small duodenal ulcer, but otherwise the wrap was okay. Pains continued. He has been losing weight, about 40 pounds weight loss. He says that he has been trying to gain weight by eating a lot of ice cream and sweets. He says he is able to the eat regular food; however, he has been having polyuria, polydipsia, and polyphagia, and was found to have new onset diabetes. PAST MEDICAL HISTORY: Congestive heart failure, hypertension, COPD, benign prostatic hypertrophy, hyperlipidemia, atrial tachycardia, anxiety, and depression. PAST SURGICAL HISTORY: He has had a defibrillator placement, rotator cuff, appendectomy, left knee replacement, cardiac catheterization. ALLERGIES: HE HAS NO KNOWN DRUG ALLERGIES. MEDICATIONS: Include, 1. Aspirin. 2. Carvedilol. 3. Digoxin. 4. Finasteride. 5. Gemfibrozil. 6. Claritin. 7. Slow-Mag. 8. Multivitamins. 9. Protonix. 10. Aldactone. 11. Trintellix. 12. Ambien. SOCIAL HISTORY: He is . No tobacco or alcohol. FAMILY HISTORY: Premature cardiac disease. PHYSICAL EXAMINATION: VITAL SIGNS: Temperature is 97.9, pulse 71, blood pressure 160/72. GENERAL: He is awake and alert, does not appear to be in any distress. HEENT: Unremarkable. LUNGS: Clear. HEART: Regular rate and rhythm. ABDOMEN: Soft and nondistended, really no significant tenderness. EXTREMITIES: Unremarkable. LABORATORY DATA: His white count 6.5, hemoglobin and hematocrit of 13 and 38, and platelet count 167. His glucose is 281. Sodium 132. His lipase was normal at 41. T bilirubin was little elevated at 1.5. LFTs otherwise normal. He had a CT scan of the abdomen and pelvis that showed some diverticulosis, small left inguinal hernia containing fat, little bit of heterogeneity of the spleen, and some cardiomegaly. ASSESSMENT: Epigastric pain, unknown etiology. PLAN: I would have Dr. Moon to see him again. He might benefit from a gastric emptying study to make sure he is not getting any kind of gastric bloating, may benefit from a trial of Reglan. At this time, I do not have a surgical indication to go back in. Job ID: [id number]
[2018-07-07] MEDS: Ipratropium Bromide 2.5 ml Neb NEB SCH (20:15)
[2018-07-07] MEDS ORDERED: Insulin Glargine 10 UNITS in Pre-Filled Syringe 1 EACH SC SCH (21:00)
[2018-07-07] MEDS ORDERED: Zolpidem Tartrate 5 MG TAB PO SCH ×2 (21:00→23:15)
[2018-07-07] MEDS ORDERED: Digoxin 0.125 MG TAB PO SCH (21:00)
[2018-07-07] MEDS: Enoxaparin Sodium 30 MG/0.3 ML SYRINGE SC SCH (23:39)
[2018-07-07] MEDS: Vortioxetine Hydrobromide [Trintellix] 10 MG PO SCH (23:39)
[2018-07-07] MEDS: Digoxin 0.125 MG TAB PO SCH (23:49)
[2018-07-08] MEDS: Ipratropium Bromide 2.5 ml Neb NEB SCH ×4 (00:05→18:17)
[2018-07-08] MEDS: cycloSPORINE 0.05% Ophthalmic Droperette EA EYE SCH ×3 (00:07→21:25)
[2018-07-08 04:48] LABS: ALT (SGPT) 12 U/L (8-55); AST (SGOT) 15 U/L (5-34); Albumin 3.3 g/dL (3.4-4.8); Alkaline Phosphatase 67 U/L (40-150); Anion Gap 12 mmol/L (10-20); BUN (Urea Nitrogen) 17 mg/dL (8.4-25.7); Bilirubin, Total 1.2 mg/dL (0.2-1.2); Calc. Creatinine Clearance 66 mL/min (70-130); Calcium 9.1 mg/dL (7.8-10.44); Carbon Dioxide 21 mmol/L (23-31); Chloride 104 mmol/L (98-107); Estimated GFR-MDRD 69; Globulin 3.3 g/dL (2.4-3.5); Glucose 152 mg/dL (83-110); Potassium 4.2 mmol/L (3.5-5.1); Protein, Total 6.6 g/dL (5.8-8.1); Sodium 133 mmol/L (136-145)
[2018-07-08] MEDS: [UNRECOGNIZED DRUG - OTHER] INH SCH ×2 (07:44→18:17)
[2018-07-08] MEDS: BUDESONIDE INH SCH ×2 (07:44→18:17)
[2018-07-08] MEDS ORDERED: Carvedilol 6.25 MG TAB PO SCH (08:00)
[2018-07-08] MEDS: glipiZIDE 5 MG TAB PO SCH (08:24)
[2018-07-08] MEDS: Aspirin 81 mg Enteric Coated Tablet PO SCH (08:26)
[2018-07-08] MEDS: ASCORBIC ACID 1000 MG PO SCH (08:26)
[2018-07-08] MEDS: Finasteride 5 MG TAB PO SCH (08:28)
[2018-07-08] MEDS: Gemfibrozil 600 MG TAB PO SCH (08:29)
[2018-07-08] MEDS: Loratadine 10 MG TAB PO SCH (08:30)
[2018-07-08] MEDS: SLOW-MAG PO SCH (08:31)
[2018-07-08] MEDS: Multivit, Therapeutic 1 TAB PO SCH (08:31)
[2018-07-08] MEDS: Vortioxetine Hydrobromide [Trintellix] 10 MG PO SCH ×2 (08:32→20:16)
[2018-07-08] MEDS: Insulin Regular 300 UNITS/3 ML VIAL SC PRN ×2 (13:04→18:34)
[2018-07-08] MEDS: Sodium Chloride 0.9% 1,000 ML IV SCH (13:05)
--- NOTE | 2018-07-08 15:57 | PRG ---
DATE OF SERVICE: 07/08/2018 SUBJECTIVE: The patient states that he feels about the same, may be a little better. He seems to be eating currently. OBJECTIVE: VITAL SIGNS: Temperature 98.6, pulse 73, blood pressure 105/58. GENERAL: He does not appear to be in any distress. HEENT: Unremarkable. LUNGS: Clear. HEART: Regular rate and rhythm. ABDOMEN: Soft. Mild tender in the epigastrium. ASSESSMENT: Epigastric pain, unknown etiology. PLAN: Gastroenterology consultation. Gastric emptying study. Job ID: [id number]
[2018-07-08] MEDS: metFORMIN 500 MG TAB PO SCH (17:41)
--- NOTE | 2018-07-08 19:29 | PRG ---
DATE OF SERVICE: 07/08/2018 SUMMARY: The patient is an 78-year-old male with laparoscopic Michael fundoplication in February of this year, presented to the emergency room with epigastric discomfort along with shortness of breath. He also had 40 pounds weight loss over the past 4 to 6 months. His workup was consistent with COPD exacerbation along with new-onset diabetes mellitus type 2. The patient has been evaluated by General Surgery. SUBJECTIVE: The patient denies any new complaints at this time. He is getting lightheaded especially on standing. No chest pain, shortness of breath, or palpitations reported. He still has epigastric discomfort, which is unchanged. REVIEW OF SYSTEMS: All other review of systems reviewed and were found negative. PHYSICAL EXAMINATION: VITAL SIGNS: Temperature 98.6; respirations of 18; blood pressure on standing was 68/48, blood pressure supine was 105/58, with O2 saturation 92% on room air. GENERAL: An 78-year-old male, ill appearing. NECK: Supple. No JVD. No carotid bruit. LUNGS: Showed scattered wheezing with some rhonchi. HEART: S1 and S2 present. Regular rate and rhythm. ABDOMEN: Soft. There is epigastric tenderness. No rebound or guarding. No costovertebral angle tenderness. EXTREMITIES: No calf tenderness. NEUROLOGIC: Grossly nonfocal. LABORATORY FINDINGS: Sodium 133, potassium 4.2, chloride 104, bicarb 21, BUN 17, and creatinine 1.04. IMAGING STUDIES: Echocardiogram showed left ventricular ejection fraction 50% to 55% with left ventricular hypertrophy. Moderate mitral regurgitation. Moderate aortic regurgitation. Telemetry monitoring by my review showed sinus rhythm. He had nonsustained V-tach earlier today. IMPRESSION: 1. Acute chronic obstructive pulmonary disease exacerbation. 2. Acute on chronic epigastric discomfort with recent Michael fundoplication. He also had EGD in April of this year. 3. Generalized weakness with dizziness with positive orthostatic vital signs. 4. Chronic diastolic heart failure, appears to be compensated. He follows a wildlife and game protector in [place]. 5. Nonsustained ventricular tachycardia. 6. Left upper lobe pulmonary nodule measuring 1.9 cm. 7. Diverticulosis. 8. Peptic ulcer disease. 9. Hypertension. 10. Hyperlipidemia. 11. Benign prostatic hypertrophy. 12. Anxiety and depression. 13. Coronary artery disease. 14. History of atrial arrhythmias, requiring ablation earlier this year. 15. New diagnosis of diabetes mellitus, type 2. PLAN: The patient will be monitored on the telemetry unit. We will change him to inpatient status. We will hold carvedilol as well as Aldactone. Gentle IV hydration. We will recheck orthostatic vitals in a.m. Recheck digoxin level in a.m. We will consult Cardiology due to nonsustained ventricular tachycardia. Continue PPIs. A gastric emptying scan has been ordered. Plan of care was discussed with the patient and the family in detail. They stated understanding. The patient will be kept n.p.o. past midnight for Cardiology consultation. Job ID: [id number]
[2018-07-08] MEDS: Digoxin 0.125 MG TAB PO SCH (20:16)
[2018-07-08] MEDS: Enoxaparin Sodium 30 MG/0.3 ML SYRINGE SC SCH (21:24)
[2018-07-09] MEDS: Ipratropium Bromide 2.5 ml Neb NEB SCH ×4 (00:30→18:43)
[2018-07-09] MEDS: Sodium Chloride 0.9% 1,000 ML IV SCH ×4 (02:07→18:00)
[2018-07-09 06:01] LABS: #Eosinphils 0.2 thou/uL (0.0-0.7); #Lymphocytes 0.8 thou/uL (1.20-3.40); #Monocytes 0.3 thou/uL (0.11-0.59); #Neutrophils 3.8 thou/uL (1.40-6.50); %Basophils 0.3 % (0.0-1.0); %Eosinophils 3.5 % (0.0-10.0); %Lymphocytes 15.3 % (21.0-51.0); %Monocytes 6.2 % (0.0-10.0); %Neutrophils 74.8 % (42.0-75.0); Hemoglobin 12.7 g/dL (14.0-18.0); Mean Corpuscular HGB CONC 36.2 g/dL (32.0-36.0); Mean Corpuscular Hemoglobin 34.4 pg (27.0-31.0); Mean Corpuscular Volume 94.9 fL (78.0-98.0); Mean Platelet Volume 6.6 fL (7.4-10.4); Platelet Count 162 thou/uL (130-400); RBC Distribution Width 12.4 % (11.5-14.5); Red Blood Cell (RBC) Count 3.69 mill/uL (4.70-6.10); White Blood Cell (WBC) Count 5.1 thou/uL (4.8-10.8)
[2018-07-09 06:17] LABS: Anion Gap 10 mmol/L (10-20); BUN (Urea Nitrogen) 20 mg/dL (8.4-25.7); Calc. Creatinine Clearance 70 mL/min (70-130); Calcium 8.6 mg/dL (7.8-10.44); Carbon Dioxide 21 mmol/L (23-31); Chloride 107 mmol/L (98-107); Estimated GFR-MDRD 74; Glucose 127 mg/dL (83-110); Magnesium 1.8 mg/dL (1.6-2.6); Sodium 134 mmol/L (136-145)
[2018-07-09 06:22] LABS: Digoxin 0.18 ng/mL (0.8-2.0)
[2018-07-09] MEDS: BUDESONIDE INH SCH ×2 (06:56→18:52)
[2018-07-09] MEDS: [UNRECOGNIZED DRUG - OTHER] INH SCH ×2 (06:56→18:52)
[2018-07-09] MEDS ORDERED: Spironolactone 25 MG TAB PO SCH (07:30)
--- NOTE | 2018-07-09 07:55 | CON ---
DATE OF CONSULTATION: 07/08/2018 PRIMARY CARE DOCTOR: Dr. Jhonathan Singh, out of town. REASON FOR CONSULTATION: Epigastric pain and weight loss. HISTORY OF PRESENT ILLNESS: Mr. Corey is a pleasant 78-year-old gentleman, who was admitted to the hospital from the emergency room on 07/06/2018. He presented with complaints of shortness of breath and epigastric pain with an associated 40-pound weight loss. The patient is also having some dizziness on standing. He reports that the main issue for him has been epigastric pain. It has been achy, discomfort at the xiphoid and upper abdomen, which has been pretty constant since he had reflux surgery for hiatal hernia and constant reflux and Michael fundoplication. He reports it is worse with posture and does not radiate to the back, it does not radiate to the right upper abdomen. Occasionally, if he does not eat enough, it could be worse and if he eats too much, it could be worse. His appetite has been well preserved until about the past 2 to 3 weeks. He still takes Protonix. He was taking it one today, but then after an EGD performed by Dr. Moon on 05/15/2018, he was found to have a small duodenal ulcer and erosive gastritis and short-segment Benites's. PPI was increased back to b.i.d. The patient notes he has no nausea or vomiting. He denies any overt early satiety. He had been having sitophobia, but he does limit what he eats to an extent. Other evaluations include upper GI in March 27, 2018. Postoperative showed narrowed proximal gastric channel related to his fundoplication. Postoperative edema. This admission, he had a CAT scan of the abdomen and pelvis on 07/06 that showed a small fat containing left inguinal hernia which is asymptomatic. It showed some fatty liver. Heterogenicity of the spleen was slightly enlarged. AICD lead with enlargement of the heart. Vascular calcifications of ascending aorta as well as the descending aorta. He had a CT scan of his chest and thorax, which showed a 1.9 cm left upper nodule which was present. The patient notes that it has been present in the past. CAT scan from 05/12 from the outside hospital states that it is a 10 mm nodule. The patient denies any melena, hematochezia, or hematemesis. His reflux is not bothering. He has no dysphagia. He has had no overt diarrhea. He had a normal CBC on admission, normal comprehensive metabolic profile and lipase on admission. He has had elevated glucose of 537 on admission. Back in February, it had been in the 100 range. Hemoglobin A1c was obtained and was 10. Presently, he is in no severe discomfort. PAST MEDICAL HISTORY: COPD, history of some heart failure, but he denies that. He has had atrial fibrillation, which has been ablated in the past. He had a defibrillator placed. Apparently, his initial pacemaker was giving him some arrhythmias, so they changed it with a defibrillator. With it, he has had hypertension, BPH, hyperlipidemia, history of anxiety and depression. PAST SURGICAL HISTORY: AICD placement, bilateral rotator cuff surgery, appendectomy, left knee replacement, cardiac catheterization, endoscopy as described above as well as fundoplication. ALLERGIES: NONE KNOWN. MEDICATIONS: 1. Aspirin. 2. Carvedilol. 3. Digoxin. 4. Finasteride. 5. Gemfibrozil. 6. Claritin. 7. Slow-Mag. 8. Multivitamin. 9. Protonix 40 b.i.d. 10. Aldactone. 11. Trintellix. 12. Ambien. SOCIAL HISTORY: He lives at home with his family. He does not smoke, drink, or use drugs. He stopped smoking in 1971. FAMILY HISTORY: Negative for coronary artery disease or colorectal cancer. REVIEW OF SYSTEMS: The patient does note that he gets some shortness of breath on minimal exertion, little bit more fatigue recently. He denies diarrhea. Denies vomiting. Notes, he has never been diagnosed with diabetes in the past, but there is a family history of diabetes. He has had some polyuria and polydipsia. He has been trying to eat more to gain weight, but has not been able to. PHYSICAL EXAMINATION: GENERAL: The patient is resting comfortably in bed, seems to be in no distress. VITAL SIGNS: Temperature 97, pulse 81, blood pressure 139/67. HEENT: Oropharynx, no lesions. NECK: Supple. No adenopathy. There are no carotid bruits. There are some muscle wasting in the suprascapular muscles in the back. LUNGS: Clear bilaterally. HEART: Regular rate and rhythm. ABDOMEN: Soft and nontender with no bruits. There is no rebound. There is no guarding. No hernias were detected on exam. There is no palpable hepatosplenomegaly. EXTREMITIES: No clubbing, cyanosis, or edema. Pulses are good in the dorsalis pedis bilaterally. LABORATORY STUDIES: Sodium 126, potassium 4.9, bicarb 20, chloride 95, BUN and creatinine are 29 and 1.47, glucose 459 on admission. Today's sugar is 152. Liver function tests were normal. Sodium 133, albumin 3.3, protein 6.6, lipase 41. B12 of 398, folate 15, TSH 1.02. ASSESSMENT: 1. Weight loss. This is concerning in light of the abdominal pain. He did have an ulcer on EGD in April, but this apparently was small. Dr. Moon felt it is not much of consequence. The symptoms began after his fundoplication and apparently, there has been no signs of overt complications related to that. He has had no further nausea or vomiting, and swallows well. Differential diagnosis of the weight loss would include newly diagnosed diabetes and occult malignancy of the pancreas could cause abdominal pain and new onset diabetes, but there are no overt masses in the pancreas by the radiology recording and I have reviewed the films and I did not see any overt lesions. The duodenal ulcer was of some concern as he was on a PPI when it developed, mesenteric ischemia is a thought as well. In light of his heart failure, it is unclear to me what his exact ejection fraction is, but he seems to have patent superior mesenteric artery and celiac vessels on his CT, although noncontrast phase was not perfect, but there were no overt plaquing in these areas, so in short left with possible complications of the surgery, ulcer disease, mesenteric ischemia, or malignancy. 2. Congestive heart failure. 3. Chronic lung disease and Benites's esophagus. RECOMMENDATIONS: He is going to get a gastric emptying scan tomorrow with Dr. Fleming, surgeon, and I think that is reasonable. I think if it is negative, then needs repeat EGD to evaluate the duodenal ulcer and make sure that is healed; if not probably needs to be biopsied. If those are all negative, it may be reasonable to consider some issue with the wrap of his fundoplication, but before we would have type of further surgery or exploration, definitely would consider CT mesenteric angiogram. We will discuss these findings with his family and either Dr. Fleimng or myself will see the patient tomorrow. I have discussed all these differentials with the patient and we will proceed as noted above. Job ID: [id number]
[2018-07-09 13:45] VITALS: BMI 24.3
--- NOTE | 2018-07-09 13:53 | NM ---
RADIONUCLIDE GASTRIC EMPTYING EXAM: HISTORY: Nausea and vomiting. Abdominal pain. FINDINGS: There is good mixing of radiotracer within the stomach on the early images. Half-life emptying is ca lculated at 67 minutes. Emptying is as follows: TIME PERCENT EMPTYING 30 minutes 35% 1 hour 44% 2 hours 86% 3 hours 100% IMPRESSION: Normal gastric emptying examination. POS: KRISTAL
--- NOTE | 2018-07-09 15:02 | PRG ---
DATE OF SERVICE: 07/09/2018 SUBJECTIVE: The patient feels much better today. He is without any abdominal pain or epigastric pain for the last two days. He is eating his lunch well without any nausea or vomiting. OBJECTIVE: VITAL SIGNS: Temperature is 97.6, blood pressure 135/69, pulse of 71. GENERAL: He is alert, conversant, in no distress. HEENT: Shows anicteric sclerae. NECK: Supple. CV: Shows normal S1 and S2. Regular rate and rhythm. CHEST: Shows breath sounds. ABDOMEN: Soft, flat, and nondistended. No tenderness. He has active bowel sounds. EXTREMITIES: Shows no edema. LABORATORY DATA: WBCs 5.1, hemoglobin 12.7, platelet count of 162. Electrolytes within normal range. Glucose 127, magnesium 1.8. Nuclear gastric emptying scan normal, emptying 100% of 3 hours. ASSESSMENT: 1. Weight loss associated with anorexia in setting of polydipsia, polyuria, and blurred vision for two weeks prior to admission, it is most likely related to new onset diabetes and hyperglycemia. 2. Epigastric pain, no evidence of mesenteric vascular disease on CT. The scan itself is otherwise normal. Currently, pain is not an issue with a benign exam. 3. Status post fundoplication. 4. History of small duodenal ulcer seen two months ago, likely of no clinical significance. RECOMMENDATIONS: 1. No other diagnostic test from GI standpoint. 2. The patient can be discharged home with followup with me in 3 to 4 weeks. 3. The patient to continue on pantoprazole 40 mg p.o. daily. Job ID: [id number]
[2018-07-09] MEDS: glipiZIDE 5 MG TAB PO SCH (16:37)
[2018-07-09] MEDS: metFORMIN 500 MG TAB PO SCH ×2 (16:37→17:17)
[2018-07-09] MEDS: Insulin Glargine 10 UNITS in Pre-Filled Syringe 1 EACH SC SCH (16:38)
[2018-07-09] MEDS: ASCORBIC ACID 1000 MG PO SCH (16:41)
[2018-07-09] MEDS: Finasteride 5 MG TAB PO SCH (16:41)
[2018-07-09] MEDS: Aspirin 81 mg Enteric Coated Tablet PO SCH (16:41)
[2018-07-09] MEDS: cycloSPORINE 0.05% Ophthalmic Droperette EA EYE SCH ×2 (16:41→20:38)
[2018-07-09] MEDS: Loratadine 10 MG TAB PO SCH (16:42)
[2018-07-09] MEDS: Gemfibrozil 600 MG TAB PO SCH (16:42)
[2018-07-09] MEDS: Multivit, Therapeutic 1 TAB PO SCH (16:42)
[2018-07-09] MEDS: SLOW-MAG PO SCH (16:43)
[2018-07-09] MEDS: Vortioxetine Hydrobromide [Trintellix] 10 MG PO SCH ×2 (16:43→20:36)
--- NOTE | 2018-07-09 17:12 | PRG ---
DATE OF SERVICE: 07/09/2018 SUBJECTIVE: The patient denies any new complaints at this time. Abdominal pain is improving. No nausea or vomiting reported. He underwent gastric emptying study today. REVIEW OF SYSTEMS: All other review of systems reviewed and were found negative. OBJECTIVE: VITAL SIGNS: Temperature 98.2, pulse rate of 70, respirations 16, O2 saturation 92% on room air, orthostatic blood pressures showed supine blood pressure of 120/66 and standing blood pressure of 100/57. Weight today is 179 pounds. GENERAL: An 78-year-old male, in no apparent distress. LUNGS: Showed scattered rales at bases. HEART: S1 and S2 present. Regular rate and rhythm. ABDOMEN: Soft. No significant tenderness. Bowel sounds present. EXTREMITIES: No edema or calf tenderness. NEUROLOGIC: Grossly nonfocal. LABORATORY DATA: Lab findings: Gastric emptying study was negative. Sodium 134, potassium 4, BUN 20, and creatinine 0.97. WBC 5.1, hemoglobin 12.7, and platelets of 162. Telemetry monitoring by my review showed sinus rhythm. Digoxin level 0.18. IMPRESSION: 1. Acute chronic obstructive pulmonary disease exacerbation, improving. We will continue nebulizer treatments. We will avoid steroids due to hyperglycemia. 2. Acute on chronic epigastric discomfort with recent Michael fundoplication. Gastrografin study was normal. He had EGD earlier this year. Gastrografin study was negative. GI is following. We will continue PPI. 3. Nonsustained ventricular tachycardia. Beta blockers are currently on hold due to orthostatic hypotension. Cardiology has been consulted. 4. Chronic diastolic heart failure, appears to be compensated. 5. Generalized weakness with dizziness with orthostatic hypotension. We will continue IV fluids. 6. New diagnosis of diabetes mellitus, type 2. We will continue glipizide with sliding scale as well as Lantus. 7. Diverticulosis. 8. Peptic ulcer disease. 9. Hypertension. Antihypertensives are currently on hold. 10. Hyperlipidemia. 11. Benign prostatic hypertrophy. 12. Anxiety and depression. 13. Coronary artery disease. 14. History of atrial arrhythmias, requiring ablation this year. DISPOSITION: Probably in 1 to 2 days. We will await Cardiology input. Continue telemetry monitoring. We will assess for home O2 at discharge. Plan of care was discussed with the patient and the family at the bedside, they stated understanding. Job ID: [id number]
[2018-07-09] MEDS: Insulin Regular 300 UNITS/3 ML VIAL SC PRN (17:17)
[2018-07-09 17:18] LABS: Troponin I 0.021 ng/mL (< 0.028)
[2018-07-09] MEDS: Enoxaparin Sodium 30 MG/0.3 ML SYRINGE SC SCH (20:32)
[2018-07-09] MEDS: Digoxin 0.125 MG TAB PO SCH (20:37)
[2018-07-09 20:50] LABS: Troponin I 0.017 ng/mL (< 0.028)
[2018-07-10] MEDS: Ipratropium Bromide 2.5 ml Neb NEB SCH ×4 (00:37→18:23)
--- NOTE | 2018-07-10 02:26 | CON ---
DATE OF CONSULTATION: REASON FOR CONSULTATION: Shortness of breath with non-sustained ventricular tachycardia. HISTORY OF PRESENT ILLNESS: Mr. Corey is a very pleasant gentleman visiting from out of town. He normally gets his medical care in [place]. He was admitted to the hospital with abdominal pain and loss of appetite with weight loss, and evaluation is being done concerning those problems. The patient had severe gastric reflux previously and had surgery to help correct the reflux last summer and the patient has lost weight since then. From a cardiac standpoint, the patient has had a history of atrial fibrillation with previous ablation. He also had pacemaker insertion. 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 He subsequently had to have a biventricular pacemaker defibrillator placed according to the patient, and the left ventricular function improved and normalized. It has been noted that he has had some asymptomatic non-sustained ventricular tachycardia while he is here. The patient has not had any chest pain or pressure. He has undergone cardiac catheterizations, and was found to have no evidence of significant coronary disease. SOCIAL HISTORY: He quit smoking in . No significant alcohol intake. REVIEW OF SYSTEMS: CONSTITUTIONAL: Positive for weight loss. VISION: No changes. HEARING: No changes. PULMONARY: Positive for shortness of breath. CARDIAC: No chest pain or pressure. GASTROINTESTINAL: No vomiting, but he has had nausea. SKIN: No rashes. NEUROLOGIC: No unilateral weakness or numbness. PSYCHIATRIC: No unusual depression or anxiety. HEMATOLOGIC: No unusual bruising. GENITOURINARY: No burning with urination. PHYSICAL EXAMINATION: GENERAL: This is a pleasant elderly gentleman, resting comfortably, in no distress. VITAL SIGNS: His blood pressure is 139/77, pulse 72. LUNGS: Diffuse crackles throughout, it sounds like pulmonary fibrosis. CARDIAC: Normal S1, normal S2. There is no murmur, rub, or gallop. ABDOMEN: Soft, nontender. EXTREMITIES: Warm and dry. No clubbing, cyanosis or edema. PSYCHIATRIC: Mood and affect normal. NEUROLOGIC: Grossly normal. LABORATORY DATA: EKG reveals a biventricular paced rhythm in a right bundle branch block pattern. Digoxin level 0.18. Chemistry, sodium is 134, troponin 0.021, magnesium is 1.8. BNP was normal at 66. ASSESSMENT: 1. Weight loss, probably related to the gastrointestinal system. 2. Nausea ? is digoxin playing a role. 3. History of atrial fibrillation with previous ablation. 4. Previous biventricular pacemaker defibrillator. 5. Non-sustained ventricular tachycardia. 6. Currently with normal left ventricular function. PLAN: 1. We would recommend stopping digoxin. 2. We will interrogate the pacemaker tomorrow. I think, he could be released home to follow up with his local coat padder. Job ID: [id number]
[2018-07-10] MEDS: [UNRECOGNIZED DRUG - OTHER] INH SCH ×2 (07:32→18:24)
[2018-07-10] MEDS: BUDESONIDE INH SCH ×2 (07:32→18:24)
[2018-07-10] MEDS: Finasteride 5 MG TAB PO SCH (08:55)
[2018-07-10] MEDS: Loratadine 10 MG TAB PO SCH (08:57)
[2018-07-10] MEDS: glipiZIDE 5 MG TAB PO SCH (08:58)
[2018-07-10] MEDS: Vortioxetine Hydrobromide [Trintellix] 10 MG PO SCH (08:58)
[2018-07-10] MEDS: metFORMIN 500 MG TAB PO SCH ×2 (08:58→18:17)
[2018-07-10] MEDS: Insulin Glargine 10 UNITS in Pre-Filled Syringe 1 EACH SC SCH (10:53)
[2018-07-10] MEDS: Aspirin 81 mg Enteric Coated Tablet PO SCH (10:55)
[2018-07-10] MEDS: ASCORBIC ACID 1000 MG PO SCH (10:55)
[2018-07-10] MEDS: SLOW-MAG PO SCH (10:55)
[2018-07-10] MEDS: Multivit, Therapeutic 1 TAB PO SCH (10:56)
[2018-07-10] MEDS: cycloSPORINE 0.05% Ophthalmic Droperette EA EYE SCH (10:57)
[2018-07-10] MEDS: Gemfibrozil 600 MG TAB PO SCH (10:57)
--- NOTE | 2018-07-10 11:10 | PRG ---
DATE OF SERVICE: 07/10/2018 SUBJECTIVE: Mr. Corey feels fine today. He is awake and alert and wishes to go home. No chest pain or pressure. Blood pressure most recently was 147/72, but according to the note his pressure dropped to 101/55 in a semi-Braga's. He has no complaints. OBJECTIVE: LUNGS: Clear. CARDIAC: Normal S1 and normal S2. ABDOMEN: Soft and nontender. EXTREMITIES: No clubbing or cyanosis. There is no edema. ASSESSMENT: 1. History of systolic heart failure, but that resolved with biventricular defibrillator placement. 2. Nonsustained ventricular tachycardia, asymptomatic. 3. Normal left ventricular function. 4. Normal coronary arteries per the patient. 5. Nausea. PLAN: Recommend stopping digoxin. He will follow up with his commercial mortgage broker in [place]. Job ID: [id number]
--- NOTE | 2018-07-10 14:15 | EKG ---
Test Reason : Blood Pressure : / mmHG Vent. Rate : 076 BPM Atrial Rate : 076 BPM P-R Int : 152 ms QRS Dur : 132 ms QT Int : 394 ms P-R-T Axes : 062 -41 073 degrees QTc Int : 443 ms Normal sinus rhythm Left axis deviation Right bundle branch block Abnormal ECG Significant artifact Confirmed by ALDO HECTOR DO [id number]), editorial assistant JOEL MARTINEZ ([id number] on 07/10/2018 2:14:51 PM Referred By: Confirmed By:ALDO HECTOR DO
--- NOTE | 2018-07-10 14:39 | PRG ---
DATE OF SERVICE: 07/10/2018 SUBJECTIVE: The patient is eating well without nausea or vomiting. He has no abdominal pain. OBJECTIVE: VITAL SIGNS: Temperature is 97.8, blood pressure 147/72, and pulse of 71. GENERAL: He is alert, in no distress. HEENT: Exam shows anicteric sclerae. Oropharynx clear. CV: Exam shows normal S1 and S2. Regular rate and rhythm. CHEST: Exam shows a breath sound. ABDOMEN: Soft, flat, and nontender. No distention. He has active bowel sounds. EXTREMITIES: Exam shows no edema. LABORATORY DATA: None. ASSESSMENT: 1. Preadmission weight loss, associated with anorexia, along with polydipsia and polyuria and blurred vision. This is likely related to hyperglycemia from new-onset diabetes. Symptoms have now since resolved. 2. Epigastric pain, resolved. CT negative. 3. History of fundoplication. 4. History of small duodenal ulcer seen 2 months ago, negative Helicobacter pylori. Currently on PPI. RECOMMENDATIONS: 1. No new recommendation of GI standpoint as the patient is doing well. 2. The patient can be discharged to home on pantoprazole 40 mg daily. He will see me back in August 2018. Job ID: [id number]
[2018-07-10 15:57] VITALS: BP 134/66; TEMP 97.8
--- NOTE | 2018-07-11 05:15 | DIS ---
DATE OF ADMISSION: 07/08/2018 DATE OF DISCHARGE: 07/10/2018 DISCHARGE DISPOSITION: Home. FOLLOWUP: 1. Follow up with primary care physician, Dr. Jhonathan Singh. 2. Follow up with Dr. Fleming and Dr. Moon as scheduled. ALLERGIES: NO KNOWN DRUG ALLERGIES. THE PATIENT WAS SEEN AND EXAMINED ON THE DAY OF DISCHARGE. DENIES ANY NEW COMPLAINTS. SHORTNESS OF BREATH HAS IMPROVED. DISCHARGE MEDICATIONS: 1. Vitamin C 1000 mg daily. 2. Aspirin 81 mg daily. 3. Finasteride 2.5 mg daily. 4. Gemfibrozil 600 mg daily. 5. Claritin 10 mg daily. 6. Slow-Mag 64 mg daily. 7. Multivitamin 1 tablet daily. 8. Protonix 40 mg b.i.d. 9. Restasis eye drops twice a day. 10. Aldactone 12.5 mg on Saturday, Saturday, and Saturday. 11. Trintellix 10 mg b.i.d. 12. Ambien 5 mg at bedtime. 13. Blood glucose monitor. 14. Glipizide 5 mg daily. 15. Metformin 500 mg twice a day. Medications discontinued this admission are digoxin and carvedilol per Cardiology. INPATIENT CONSULTANTS: 1. Gastroenterology, Dr. Moon. 2. General Surgery, Dr. Fleming. 3. Cardiology, Dr. Madsen. BRIEF HOSPITAL COURSE: The patient is an 78-year-old male with congestive heart failure and Michael fundoplication earlier this year, presented to the hospital with worsening shortness of breath along with abdominal discomfort. Please refer to the history and physical for further details. The patient was admitted to the telemetry unit with a diagnosis of COPD exacerbation along with abdominal discomfort. He was started on nebulizer treatment with good improvement in his symptoms. Echocardiogram showed left ventricular ejection fraction of 50% to 55% with moderate mitral regurgitation, moderate aortic regurgitation, and oxyx-sw-qtyaligm tricuspid regurgitation. Due to nonsustained ventricular tachycardia, he was seen by Cardiology, Dr. Madsen. Due to orthostatic hypotension, carvedilol has been discontinued per Cardiology. Digoxin was also discontinued by Cardiology. The patient was evaluated by General Surgery and Gastroenterology due to abdominal discomfort. A gastric emptying scan was done that was essentially negative. He will follow up with Gastroenterology as outpatient. The patient was also diagnosed with new onset diabetes mellitus type 2. His hemoglobin A1c was 10.1 with a blood sugar of 451 on admission. He has been started on glipizide and metformin. His blood sugar on the day of discharge is 142 to 176. He was advised to monitor his blood sugar on a daily basis. If his blood sugar remains elevated, then he will benefit from insulin. He was counseled on diabetes mellitus type 2. FINAL DIAGNOSES: 1. Acute chronic obstructive pulmonary disease exacerbation. 2. Acute on chronic epigastric discomfort with recent Michael fundoplication. His Gastrografin study was normal. He also had EGD earlier this year. 3. Nonsustained ventricular tachycardia. Plan as discussed above. 4. Chronic diastolic heart failure, compensated. 5. Orthostatic hypotension. 6. Generalized weakness, multifactorial. 7. New diagnosis of diabetes mellitus type 2. 8. Diverticulosis. 9. Peptic ulcer disease. 10. History of hypertension. 11. Hyperlipidemia. 12. Benign prostatic hypertrophy. 13. Anxiety and depression. 14. Coronary artery disease. 15. History of atrial arrhythmias requiring ablation this year. 16. Chronic respiratory failure, on home oxygen starting this admission. His oxygen on ambulation was 82%. Home oxygen will be arranged prior to discharge. Total time coordinating the discharge of this patient was 38 minutes. Job ID: [id number]
== END 2018-07-10 19:10 | disposition home or self-care (01) | DRG 191 ==
LOC: ERS 15:35 → 2SW 18:20 → OBSVTOIN 07-08 11:05 → 2NO 07-09 18:14
PROVIDERS: ADMIT Internal Medicine; ATTEND Internal Medicine
DX: J44.1 Chronic obstructive pulmonary disease with (acute) exacerbation (principal); I50.32 Chronic diastolic (congestive) heart failure; I47.1 Supraventricular tachycardia; E11.65 Type 2 diabetes mellitus with hyperglycemia; I11.0 Hypertensive heart disease with heart failure; N40.0 Benign prostatic hyperplasia without lower urinary tract symptoms; K22.70 Barrett's esophagus without dysplasia; K57.90 Diverticulosis of intestine, part unspecified, without perforation or abscess without bleeding; Z95.810 Presence of automatic (implantable) cardiac defibrillator; E78.5 Hyperlipidemia, unspecified; Z96.652 Presence of left artificial knee joint; Z79.899 Other long term (current) drug therapy; Z79.82 Long term (current) use of aspirin; K27.9 Peptic ulcer, site unspecified, unspecified as acute or chronic, without hemorrhage or perforation; F41.9 Anxiety disorder, unspecified; F32.9 Major depressive disorder, single episode, unspecified; F51.04 Psychophysiologic insomnia; R63.0 Anorexia; R10.13 Epigastric pain; R91.1 Solitary pulmonary nodule; K21.9 Gastro-esophageal reflux disease without esophagitis
CPT/HCPCS: 36415; 36416; 71275; 74177; 78264; 80048; 80053; 80162; 82010; 82607; 82746; 83036; 83605; 83690; 83735; 83880; 83930; 84100; 84443; 84484; 84550; 85025; 93005; 93010; 93306; 94760; 96361; 96374; 96375; A9541; J1650; J1815; J2270; J2405

== ENCOUNTER 2018-12-17 09:44 | Day surgery (SDC) | payer MEDICARE, OTHER ==
[2018-12-16 15:52] VITALS: BMI 24.1
[2018-12-17] MEDS ORDERED: PROPOFOL 200 MG/20 ML VIAL ONE (15:47)
--- NOTE | 2018-12-17 17:24 | OP ---
DATE OF PROCEDURE: 12/17/2018 PROCEDURE PERFORMED: Esophagogastroduodenoscopy with biopsy. PREMEDICATION: Given by Anesthesiology Department. PREPROCEDURE DIAGNOSES: 1. Persistent gnawing epigastric pain. 2. History of gastroesophageal reflux disease, status post fundoplication. 3. Benites's esophagus. 4. History of duodenal ulcer. POSTPROCEDURE DIAGNOSES: 1. Normal duodenum and stomach with intact fundoplication. 2. Unchanged Benites's lining. 3. No other abnormality seen. DESCRIPTION OF PROCEDURE: Written consents were obtained prior to procedure. After adequate sedation, forward viewing endoscope was advanced down the stomach under direct vision to the third portion of the duodenum. The second and third portions appeared normal. The bulb appeared normal. The pylorus was patent. The gastric antrum, body, fundus, and cardia appeared normal. Retroflexion showed an intact fundoplication. The GE junction was noted at 40 cm from the incisors. The previously seen Benites's lining appeared unchanged without any mucosal abnormality. The distal, mid, and upper esophagus appeared normal. Biopsies obtained from the duodenum to evaluate for gluten enteropathy and also from the gastric lining. The stomach was decompressed and the instrument was then fully removed. The patient tolerated the procedure well. IMPRESSION: Normal upper endoscopy with intact fundoplication and unchanged Benites's. PLAN: Await biopsy results. Job ID: [id number]
== END 2018-12-17 13:40 | disposition home or self-care (01) ==
LOC: SDC 09:44
PROVIDERS: ATTEND Internal Medicine Gastroenterology
PROC: 0DB98ZX Excision of Duodenum, Via Natural or Artificial Opening Endoscopic, Diagnostic (ICD-10-PCS; principal; 2018-12-17)
PROC: 0DB68ZX Excision of Stomach, Via Natural or Artificial Opening Endoscopic, Diagnostic (ICD-10-PCS; 2018-12-17)
DX: K29.80 Duodenitis without bleeding (principal); K29.50 Unspecified chronic gastritis without bleeding; Z79.84 Long term (current) use of oral hypoglycemic drugs; Z79.899 Other long term (current) drug therapy; Z87.891 Personal history of nicotine dependence
CPT/HCPCS: 88305; 88312; J2704